=== PATIENT | male | born 1955 | race Caucasian/White ===

== ENCOUNTER 2023-03-28 16:18 | Inpatient (IN) | payer OTHER ==
[2023-03-28] MEDS ORDERED: Vancomycin 1 GM VIAL ONE (16:43)
[2023-03-28] MEDS ORDERED: Cefepime 2 GM VIAL ONE (16:44)
[2023-03-28 17:27] LABS: Hematocrit 42.2 % (38.8-50.0); Hemoglobin 14.2 g/dL (13.5-17.5); MDiff Complete? YES; Mean Corpuscular HGB CONC 33.6 g/dL (32.0-36.0); Mean Corpuscular Hemoglobin 29.3 pg (27.0-33.0); Mean Corpuscular Volume 87.2 fl (81.2-95.1); Mean Platelet Volume 10.5 fl (7.4-10.4); Platelet Count 178 10x3/uL (150-450); RBC Distribution Width 13.3 % (11.5-14.5); Red Blood Cell (RBC) Count 4.84 10x6/uL (4.32-5.72); White Blood Cell (WBC) Count 24.1 10x3/uL (3.5-10.5)
[2023-03-28 17:32] LABS: INR-International Normal Ratio 1.1; PTT 26.8 sec (22.0-33.0); Prothrombin Time 11.3 sec (9.5-12.1)
[2023-03-28 17:45] LABS: ALT (SGPT) 19 U/L (8-55); AST (SGOT) 21 U/L (5-34); Albumin 4.2 g/dL (3.4-4.8); Alkaline Phosphatase 52 U/L (40-110); Anion Gap 11 mmol/L (10-20); BUN (Urea Nitrogen) 21 mg/dL (8.4-25.7); Bilirubin, Total 1.3 mg/dL (0.2-1.2); Calc. Creatinine Clearance 0 mL/min (70-130); Calcium 8.9 mg/dL (7.8-10.44); Carbon Dioxide 22 mmol/L (23-31); Chloride 104 mmol/L (98-107); Estimated GFR 49; Globulin 3.5 g/dL (2.4-3.5); Glucose 96 mg/dL (80-115); Potassium 4.1 mmol/L (3.5-5.1); Protein, Total 7.7 g/dL (5.8-8.1); Sodium 133 mmol/L (136-145)
[2023-03-28 17:56] LABS: SARS-CoV-2 NAA Rapid Test DETECTED (NotDetected)
[2023-03-28] MEDS ORDERED: Senokot S 8.6-50 MG TAB PO PRN (19:09)
[2023-03-28] MEDS ORDERED: Ondansetron PF 4 MG/2 ML Vial IVP PRN (19:09)
[2023-03-28] MEDS ORDERED: Calcium Carbonate 500 MG ChewTAB PO PRN (19:09)
[2023-03-28] MEDS ORDERED: Guaifenesin DM 100-10/5 ML UDCUP PO PRN (19:09)
[2023-03-28] MEDS ORDERED: traMADol HCl 50 MG TAB PO PRN (19:10)
[2023-03-28 19:57] LABS: Monocytes 5 % (0-10); Neutrophil 65 % (42-75)
[2023-03-28 19:59] LABS: Band 29 % (5-11); Lymphocytes 1 % (21-51)
[2023-03-28 20:03] LABS: Platelet Adequacy Comment Appears Adequate
[2023-03-28 20:04] LABS: RBC Morph Comment Within Normal Limits
[2023-03-28 22:24] LABS: Bilirubin Neg (Negative); Blood, Urine Negative (Negative); Clarity Clear (Clear); Glucose, Urine (Dipstick) Normal (Negative); Ketone, Urine Negative (Negative); Leukocyte Negative (Negative); Nitrite Negative (Negative); Protein, Urine (Dipstick) 30 mg/dl (Neg-Trace); Urobilinogen Normal mg/dL (Less than 2)
[2023-03-28 22:44] LABS: Bacteria/HPF 1+ HPF (None Seen); CAUTI Indications for Culture Fever or rigors; RBC/HPF 0-3 HPF (0-3); Squamous Epithelial 0-3 HPF (0-3)
[2023-03-28 22:46] LABS: Mucous/LPF 3+ LPF (<2+)
[2023-03-28 22:47] LABS: Urine Culture Reflex No No
[2023-03-28] MEDS: Acetaminophen 325 MG TAB PO PRN (23:27)
[2023-03-28] MEDS: Vancomycin 1 GM in Sodium Chloride 0.9% 250 ML 250 ML IVPB SCH (23:28)
[2023-03-28] MEDS: Lactated Ringer's 1,000 ML IV SCH (23:28)
[2023-03-28] MEDS ORDERED: FLU VACC QS2023(65UP)/MF59C/PF 60 MCG/0.5 ML SYRINGE IM ONE (23:30)
[2023-03-29] MEDS: Cefepime 2 GM in Sodium Chloride 0.9% 100 ML IVPB SCH (06:37)
[2023-03-29 07:26] LABS: Anion Gap 12 mmol/L (10-20); BUN (Urea Nitrogen) 18 mg/dL (8.4-25.7); Calc. Creatinine Clearance 91 mL/min (70-130); Calcium 8.3 mg/dL (7.8-10.44); Carbon Dioxide 19 mmol/L (23-31); Chloride 110 mmol/L (98-107); Estimated GFR 62; Glucose 91 mg/dL (80-115); Potassium 4.4 mmol/L (3.5-5.1); Sodium 137 mmol/L (136-145)
[2023-03-29 07:27] LABS: #Basophils 0.1 10x3/uL (0.0-0.2); #Monocytes 0.7 10x3/uL (0.0-1.1); #Neutrophils 13.9 10x3/uL (1.5-8.4); %Basophils 0.3 % (0.0-2.0); %Eosinophils 0.3 % (0.0-6.0); %Lymphocytes 3.3 % (18.0-47.0); %Monocytes 4.3 % (0.0-10.0); %Neutrophils 91.3 % (40.0-75.0); Hemoglobin 13.5 g/dL (13.5-17.5); Mean Corpuscular HGB CONC 32.9 g/dL (32.0-36.0); Mean Corpuscular Hemoglobin 29.3 pg (27.0-33.0); Mean Corpuscular Volume 88.9 fl (81.2-95.1); Platelet Count 125 10x3/uL (150-450); RBC Distribution Width 13.8 % (11.5-14.5); Red Blood Cell (RBC) Count 4.61 10x6/uL (4.32-5.72); White Blood Cell (WBC) Count 15.2 10x3/uL (3.5-10.5)
[2023-03-29] MEDS: Enoxaparin 40 MG (0.4 mL) SYRINGE SC SCH (09:43)
[2023-03-29 12:59] LABS: Hemoglobin A1c 5.4 % (4.0-6.0)
[2023-03-29] MEDS: Vancomycin 1.5 GRAM/300 ML BAG 1.5 GM in Premix 1 BAG IVPB SCH (21:57)
[2023-03-30 05:43] LABS: Anion Gap 12 mmol/L (10-20); BUN (Urea Nitrogen) 15 mg/dL (8.4-25.7); Calc. Creatinine Clearance 0 mL/min (70-130); Calcium 8.3 mg/dL (7.8-10.44); Carbon Dioxide 20 mmol/L (23-31); Chloride 109 mmol/L (98-107); Estimated GFR 71; Glucose 90 mg/dL (80-115); Sodium 137 mmol/L (136-145)
[2023-03-30 05:44] LABS: #Eosinphils 0.1 10x3/uL (0.0-0.5); #Monocytes 0.9 10x3/uL (0.0-1.1); #Neutrophils 7.8 10x3/uL (1.5-8.4); %Basophils 0.2 % (0.0-2.0); %Eosinophils 0.5 % (0.0-6.0); %Lymphocytes 11.8 % (18.0-47.0); %Monocytes 8.5 % (0.0-10.0); %Neutrophils 78.6 % (40.0-75.0); Hematocrit 36.5 % (38.8-50.0); Hemoglobin 12.3 g/dL (13.5-17.5); Mean Corpuscular HGB CONC 33.7 g/dL (32.0-36.0); Mean Corpuscular Hemoglobin 29.5 pg (27.0-33.0); Mean Corpuscular Volume 87.5 fl (81.2-95.1); Platelet Count 129 10x3/uL (150-450); RBC Distribution Width 13.6 % (11.5-14.5); Red Blood Cell (RBC) Count 4.17 10x6/uL (4.32-5.72)
[2023-03-30 09:14] VITALS: TEMP 98.2
[2023-03-30] MEDS ORDERED: Clindamycin/D5W 900 MG in Premix 1 BAG IVPB SCH ×2 (12:41→14:00)
[2023-03-30 13:44] VITALS: BP 118/57
== END 2023-03-30 17:08 | DRG 871 ==
LOC: CSHERS 16:18 → EEVIPCON 16:18 → CSHTELE 18:04
PROVIDERS: ADMIT Family Medicine; ATTEND Family Medicine
DX: A41.9 Sepsis, unspecified organism (principal); U07.1 COVID-19; L03.115 Cellulitis of right lower limb; N17.9 Acute kidney failure, unspecified; N28.9 Disorder of kidney and ureter, unspecified; D69.6 Thrombocytopenia, unspecified; G47.33 Obstructive sleep apnea (adult) (pediatric); Z87.891 Personal history of nicotine dependence; Z78.9 Other specified health status
CPT/HCPCS: 36415; 71045; 80048; 80053; 81001; 83036; 83605; 83880; 84443; 85025; 85610; 85730; 87040; 93923; 93970; J0692; J1650; J3370; J3490; J7050; J7120